=== PATIENT | male | born 1985 ===

== ENCOUNTER 2024-12-09 09:42 | Outpatient (AMB) | payer OTHER, SELFPAY ==
[2024-12-09 09:43] VITALS: PULSE 79; TEMP 37; O2SAT 98; BMI 37.5
--- NOTE | 2024-12-09 09:43 | AM.OFFWIN_ITS ---
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 - He consumed an extra filling of hot sa uce last night and is unsure if it contained shrimp, although he has no known allergy to shrimp. - The patient experienced multiple episo shena of soft stools today, which is not typical for him. - He reports mild nausea but denies any fever, bloody stools, or black stools. - The symptoms began this morning and payne ve persisted for one day. Physical Exam General: Cooperative, healthy appearing, comfortable, no acute distress and well developed Orientation: Patient oriented x3 Limitations: No limitations Head: Normal to inspection Ears: Hearing grossly normal bilaterally Nose: Normal External nose present Face and sinus: Normal facial exam Eyes: Appearance normal, both eyes and all related structures Neck: Normal visual inspection and Yes full ROM Respiratory: Normal respiratory effort and able to speak in complete sentences. Skin: No rashes or lesions noted Neuro: Patient oriented x3 Extremities: Normal to inspection Review of Systems Const All systems reviewed & are unremarkable except as noted in HPI and below Physical Exam Vital Signs: Last Vital Signs Temp 98.6 F 12/09/24 09:43 Pulse 79 12/09/24 09:43 Pulse Ox 98 12/09/24 09:43 Oxygen Delivery Method Room Air 12/09/24 09:43 BMI result Body Mass Index 37.5 Assessment & Plan Assessment & Plan (1) Diarrhea: Code(s): R19.7 - Diarrhea, unspecified Qualifiers: Diarrhea type: unspecified type Qualified Code(s): R19.7 - Diarrhea, unspecified Plan: Patient was informed and verbally consented to the use of an ambient scribe for clinic note documentation during this visit. Gastroenteritis - The patient is advised to monitor symptoms for 24 to 48 hours as they may resolve spontaneously. - If symptoms persist beyond four days or worsen, a gastrointestinal panel will be ordered to rule out infectious causes. - The patient is advised to seek emergency care if high fever, bloody stools, or black stools develop. - Imodium can be taken to manage symptoms, provided there is no fever. Orders: Orders GI Panel Today R19.7 - Diarrhea, unspecified Coding Level of Care Code New Pt Level 3 (00128) Diagnoses Diarrhea, unspecified type R19.7 Diarrhea type: unspecified type
--- OUTSIDE RECORDS SUMMARY | 2024-12-09 10:49 | XMS_ITS | Encounter Summary ---
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 Name Role Phone Unavailable Primary Care Provider Unavailabl e Prior Encounters Date Type Department Care Team Description 10/03/2023 Travel 10/03/2023 4:30 PM PDT Office Visit [facility] [address] [place] [phone] Claritza Bahena, [facility] 09/13/2023 Travel 09/13/2023 4:00 PM PDT Office Visit [facility] [address] [place] [address] Susanne Saucedo, MAMTA Attrition, teeth excessive (Primary Dx); Encounter for dental examination and cleaning without abnormal findings 10/17/2022 8:00 AM PDT Office Visit [facility] [address] [place] [address] Quincy Ng, TERRA Last Filed Vital Signs Vital Sign Reading Time Taken Comments Blood Pressure 156/109 09/13/2023 4:16 PM PDT Pulse 81 10/17/2022 8:36 AM PDT Temperature - - Respiratory Rate - - Oxygen Saturation - - Inhaled Oxygen Concentration - - Weight - - Height - - Body Mass Index - - Plan of Treatment Not on file Procedures Procedure Name Priority Date/Time Associated Diagnosis Comments ORAL HYGIENE INSTRUCTIONS Routine 2023 4:30 PM PDT TOPICAL APPLICATION OF FLUORIDE VARNISH Routine 10/03/2023 4:30 PM PDT PERIO MAINTENANCE Routine 10/03/2023 4:3 0 PM PDT LR ANTIBACT IRR/QUAD Routine 10/03/2023 4:30 PM PDT LL ANTIBACT IRR/QUAD Routine 10/03/2023 4:30 PM PDT UR ANTIBACT IRR/QUAD Routine 10/03/2023 4:30 PM PDT UL ANTIBACT IRR/QUAD Routine 10/03/2023 4:30 PM PDT INTRAORAL PHOTO Routine 09/13/2023 4:00 PM PDT INTRAORAL PHOTO Routine 09/13/2023 4:00 PM PDT INTRAORAL PHOTO Routine 09/13/2023 4:00 PM PDT INTRAORAL PHOTO Routine 09/13/2023 4:00 PM PDT INTRAORAL - COMPREHENSIVE SERIES OF RADIOGRAPHIC IMAGES Routine 09/13/2023 4:00 PM PDT COMPREHENSIVE ORAL EVALUATION - NEW OR ESTABLISHED PATIENT Routine 09/13/2023 4:00 PM PDT Encounter for dental examination and cleaning without abnormal findings PANORAMIC RADIOGRAPHIC IMAGE Routine 09/13/2023 4:00 PM PDT 12 DO COMPOSITE FILLING Routine 09/13/19 12:00 AM PDT BITEWING - SINGLE RADIOGRAPHIC IMAGE Routine 10/17/2022 8:00 AM PDT PANORAMIC RADIOGRAPHIC IMAGE Routine 10/17/2022 8:00 AM PDT SINGLE X-RAY Routine 10/17/2022 8:00 AM PDT LIMITED ORAL EVALUATION - PROBLEM FOCUSED Routine 10/17/2022 8:00 AM PDT 13 PFM CROWN Routine 10/17/2022 12:00 AM PDT 13 ROOT CANAL Routine 10/17/2022 12:00 AM PDT 31 ROOT CANAL Routine 10/17/2022 12:00 AM PDT 30 MOD COMPOSITE FILLING Routine 023 12:00 AM PDT Visit Diagnoses Diagnosis Start Date Attrition, teeth excessive Excessive attrition of teeth, unspecified 09/13/2023 Encounter for dental examination and cleaning without abnormal findings 09/13/2023 Insurance [facility] [place] [id number] [facility]
--- OUTSIDE RECORDS SUMMARY | 2024-12-09 10:50 | XMS_ITS | Clinical Summary ---
Author Organization [employer] Address [address] [place] [address] [address] [place] [address] Care Team Providers Care Police Detective Name Role Phone Jai Burger NP Primary Care Provider [phone] Allergies No known active allergies Medications loratadine (Claritin) 10 MG tablet Take 10 mg by mouth if needed for allergies. 4 Active fluocinonide (Lidex) 0.05 % ointment Apply topically if needed for irritation or rash. 4 Active Active Problems Problem Noted Date Diagnosed Date Pain of left hand 07/24/2024 Cyst of joint of left hand 07/24/2024 Encounters Date Type Department Care Team Description 10/29/2024 Telephone Jung [facility] [address] [place] [address] Jai Burger, SIMEON Abnl hand imaging from Last 3 Months Immunizations Immunization Administration Dates Next Due Influenza, Injectable, MDCK, w/preservative 09/2023 Social History Tobacco Use Types Packs/Day Years Used Date Smoking Tobacco: Never Passive Smoke Exposure: Never Smokeless Tobacco: Never Tobacco Cessation:Counseling Given: Not Answered Alcohol Use Standard Drinks/Week Comments Yes 0 (1 standard drink = 0.6 oz pur e alcohol) Once a year Alcohol Answer Date Recorded How often do you have a drink containing alcohol ? 0 07/24/2024 How many drinks containing a lcohol do you have on a typical day when you are drinking? 0 07/24/2024 How often do you have six or more drinks on one occasion? 0 07/24/2024 Housing Stability Answer Date Recorded What is your housing situation today? I have sharon bolivar 07/24/[address] you li ve. Do you have problems with any of the following? None of the above 07/24/2024 Food Insecurity Answer Date Recorded Within the past 12 months, y ou worried that your food would run out before you got money to buy more: Never True 07/24/2024 Within the past 12 months,th e food you bought just didn't last and you didn't have enough money to get more: Never True Transportation Answer Date Recorded In the past 12 months, has l ack of transportation kept you from medical appts, meetings, work or from getting things needed for daily living? No 07/24/2024 Intimate Partner Violence Answer Date R ecorded Within the last year, have y ou been afraid of your partner or ex-partner? 2 07/24/2024 Within the last year, have y ou been humiliated or emotionally abused in other ways by your partner or ex-partner? 2 Within the last year, have y ou been kicked, hit, slapped, or otherwise physically hurt by your partner or ex-partner? 2 07/24/2024 Within the last year, have y ou been raped or forced to have any kind of sexual activity by your partner or ex-partner? 2 07/24/2024 Utilities Answer Date Recorded In the past 12 months, has t he electric, gas, oil or water company threatened to shut off services in your home? No 07/24/2024 Depression Answer Date Recorded Patient Health Questionnaire-2 Score 0 07/24/2024 Internet Access Answer Date Recorded Internet Access Q1 Yes 07/24/2024 Internet Access Q2 Not on file 07/24/2024 Sex and Gender Information Value Date Recorded Sex Assigned at Male 02/06/2024 9:12 AM EDT Legal Sex Male 4:21 PM EDT Gender Identity Male 02/06/2024 9:12 AM EDT Sexual Orientation Choose not to disclose 2023 9:12 AM EDT Occupation Industry Job Start Date Job End Date Not on file Not on file Not on file Not on file Last Filed Vital Signs Vital Sign Reading Time Taken Comments Blood Pressure 120/78 07/24/2024 3:35 PM EDT Pulse 69 07/24/2024 3:35 PM EDT Temperature - - Respiratory Rate - - Oxygen Saturation 98% 07/24/2024 3:35 PM EDT Inhaled Oxygen Concentration - - Weight 130 kg (286 lb) 07/24/2024 3:35 PM EDT Height 185.4 cm (6' 1 ) 07/24/2024 3:35 PM EDT Body Mass Index 37.73 07/24/2024 3:35 PM EDT Plan of Treatment Health Maintenance Due Date Last Done Comments Lipid Panel 1986 Disability Screening 1986 HPV Vaccines (1 - Male 3-dos e series) 2001 DTaP/Tdap/Td Vaccines (1 - Tdap) 2005 Hepatitis A Vaccines (1 of 2 - Risk 2-dose series) 2005 Hepatitis B Vaccines (1 of 3 - 19+ 3-dose series) 2005 COVID-19 Vaccine (1 - 2023-2 5 season) 2024 Influenza Vaccine (#1) 2024 02/13/2024 Dental Prophylaxis 01/08/2025 07/08/2024 Dental Oral Exam 01/22/2025 07/22/2024 Dental X-Ray: Bitewings 07/09/2025 07/08/2024 Alcohol/Substance Use Screening 07/24/2025 07/24/2024 Depression Screening 07/24/2025 07/24/2024, 07/24/2024 Family Planning (PISQ) 07/24/2025 07/24/2024 SDOH Screening 07/24/2025 07/24/2024 Tobacco Screening 07/24/2025 07/24/2024 Dental X-Ray: Full Mouth 07/10/2027 07/08/2024 Zoster Vaccines (1 of 2) 2036 RSV Patients and Patients Aged 60 years or older (1 - 1-dose 75+ series) 2061 HIV Screening Completed 07/02/2024 Hepatitis C Screening Completed 07/02/2024 HIB Vaccines Aged Out No longer eligi ble based on patient's age to complete this topic IPV Vaccines Aged Out No longer eligi ble based on patient's age to complete this topic Meningococcal B Vaccine Aged Out No l onger eligible based on patient's age to complete this topic Meningococcal Vaccine Aged Out No homa german eligible based on patient's age to complete this topic Pneumococcal Vaccine: Pediatrics (0 to 5 Years) and At-Risk Patients (6 to 49) Years Aged Out No longer eligible b ased on patient's age to complete this topic RSV under 20 months Aged Out No longe r eligible based on patient's age to complete this topic Rotavirus Vaccines Aged Out No longer eligible based on patient's age to complete this topic Procedures Procedure Name Priority Date/Time Associated Diagnosis Comments US HAND LEFT Routine 10/24/2024 Pain of left hand Cyst of joint of left hand PERIODIC ORAL EVALUATION - ESTABLISHED PATIENT Routine 07/22/2024 10:30 AM EDT PROPHYLAXIS - ADULT Routine 07/08/2024 1 1:00 AM EDT INTRAORAL - COMPLETE SERIES OF RADIOGRAPHIC IMAGES Routine 07/08/2024 11:00 AM EDT HEPATITIS C AB W/REFLEX TO HCV QUANT NAAT IF POSITIVE Routine 07/02/2024 3:52 PM EDT Accident caused by hypodermic needle, sequela HIV P24 ANTIGEN/ANTIBODY WITH REFLEX TO CONFIRMATION Routine 07/02/2024 3:52 PM EDT Accident caused by hypodermic needle, sequela from Last 3 Months or Most Recently Relevant to Health Maintenance Results * US Hand Left (10/24/2024) Anatomical Region Laterality Modality Abdomen Ultrasound us Una Massey NP IMG US PROCEDURES Fin al Result * Hepatitis C Virus (HCV) Antibody With Reflex to Quantitative Real-time PCR [[id number]] (07/02/2024 3:52 PM EDT) HCV Ab Non Reactive Non Reactive [facility] 1 Blood Venous blood specimen / Unknown 07/02/2024 3:52 PM EDT 07/02/2024 Narrative [facility] 1 - 07/03/2024 12:05 PM EDT Performed at: [facility] [address], [address], [place], [place] [id number] Sanforizing Machine Operator: Cristian Guerra MD, Phone: [phone] [facility] [employer] LAB BLOOD ORDERABLES Donna l Result [facility] 1 * HIV p24 Antigen/Antibody With Reflex to Confirmation (07/02/2024 3:52 PM EDT) [facility] HIV Ab/p24 Ag Screen Non Reactive Non Reactive [facility] 1 Comment: HIV-1/HIV-2 antibodies and HIV-1 p24 antigen were NOT detected. There is no laboratory evidence of HIV infection. HIV Negative Blood Venous blood specimen / Unknown 07/02/2024 3:52 PM EDT 07/02/2024 Narrative [facility] 1 - 07/03/2024 10:05 AM EDT Performed at: 01 - [address], [address], [place], [place] [id number] Sanforizing Machine Operator: Cristian Guerra MD, Phone: [phone] [facility] LAB BLOOD ORDERABLES Donna l Result [facility] 1 from Last 3 Months or Most Recently Relevant to Health Maintenance Insurance [facility] [address] [place] [address] DENTAL - [facility] Care Teams Police Detective Relationship Specialty Start Date End Date Jai Burger NP [address] [facility] [place] [address] PCP - General Internal Medicine 02/13/24
--- OUTSIDE RECORDS SUMMARY | 2024-12-09 10:50 | XMS_ITS | Clinical Summary ---
Author Organization [facility] Address [address] [place] [address] Care Team Providers Care Instructional Design Specialist Name Role Phone Unavailable Primary Care Provider Unavailabl e Medications No known medications Active Problems Problem Noted Date Diagnosed Date Non-alcoholic fatty liver disease 09/13/2023 Social History Tobacco Use Types Packs/Day Years Used Date Smoking Tobacco: Never Smokeless Tobacco: Never Tobacco Cessation:Counseling Given: Not Answered Alcohol Use Standard Drinks/Week Comments Not Currently 0 (1 standard drink = 0.6 oz pur e alcohol) On ocassion Sex and Gender Information Value Date Recorded Sex Assigned at Not on file Legal Sex Male 10:58 AM PDT Gender Identity Not on file Sexual Orientation Not on file Last Filed Vital Signs Vital Sign Reading Time Taken Comments Blood Pressure 156/109 09/13/2023 4:16 PM PDT Pulse 81 10/17/2022 8:36 AM PDT Temperature - - Respiratory Rate - - Oxygen Saturation - - Inhaled Oxygen Concentration - - Weight - - Height - - Body Mass Index - - Plan of Treatment Health Maintenance Due Date Last Done Comments Scaling and Root Planing 1986 Periodontal Maintenance 01/04/2024 10/03/2023 Dental Oral Exam 03/15/2024 09/13/2023 Dental X-Ray: Bitewings 03/15/2024 09/13/2023 Dental X-Ray: Panoramic 09/13/2026 09/13/2023, 10/18, 10/17/2022 Dental X-Ray: Full Mouth 09/14/2026 09/14/2023, 09/2023 Procedures Procedure Name Priority Date/Time Associated Diagnosis Comments PERIO MAINTENANCE Routine 10/03/2023 4:3 0 PM PDT PANORAMIC RADIOGRAPHIC IMAGE Routine 09/13/2023 4:00 PM PDT INTRAORAL - COMPREHENSIVE SERIES OF RADIOGRAPHIC IMAGES Routine 09/13/2023 4:00 PM PDT COMPREHENSIVE ORAL EVALUATION - NEW OR ESTABLISHED PATIENT Routine 09/13/2023 4:00 PM PDT Encounter for dental examination and cleaning without abnormal findings from Last 3 Months or Most Recently Relevant to Health Maintenance [facility] [place] [id number]
--- OUTSIDE RECORDS SUMMARY | 2024-12-09 10:50 | XMS_ITS | Clinical Summary ---
Author Organization [address] [facility] Address [address] [place] [address] Phone Care Team Providers Care Machine Welder Name Role Phone Jason Burger NP Primary Care Provider [phone] Social History Tobacco Use Types Packs/Day Years Used Date Smoking Tobacco: Never Assessed Sex and Gender Information Value Date Recorded Sex Assigned at Not on file Legal Sex Male 8:05 AM EDT Gender Identity Not on file Sexual Orientation Not on file Plan of Treatment Upcoming Encounters Date Type Department Care Team ([facility] st Contact Info) Description 01/02/2025 8:00 AM EDT Consult Orthopedic Surgery - [place] [address] [facility] [address] [place] [phone] Francy Jiang, AURA [address] [place] [phone] Health Maintenance Due Date Last Done Comments DTaP,Tdap,and Td Vaccines (1 - Tdap) 2005 Hepatitis B Vaccines (1 of 3 - 19+ 3-dose series) 2005 COVID-19 Vaccine ( - 2023-2 5 season) 2023 Depression Screening 04/09/2024 Cholesterol Screening (Lipid Panel) 11/03/2024 HIV Screening 11/03/2024 Hepatitis C Screening 11/03/2024 Social Influencers of Health Screening 11/03/2024 Influenza Vaccine (#1) 2024 HIB Vaccines Aged Out No longer eligi ble based on patient's age to complete this topic HPV Vaccines Aged Out No longer eligi ble based on patient's age to complete this topic Hepatitis A Vaccines Aged Out No long er eligible based on patient's age to complete this topic IPV Vaccines Aged Out No longer eligi ble based on patient's age to complete this topic MMR Vaccines Aged Out No longer eligi ble based on patient's age to complete this topic Meningococcal ACWY Vaccine Aged Out N o longer eligible based on patient's age to complete this topic Meningococcal B Vaccine Aged Out No l onger eligible based on patient's age to complete this topic Pneumococcal Vaccine: Pediat rics (0 to 5 Years) and At-Risk Patients (6 to 49 Years) Aged Out No longer eligible b ased on patient's age to complete this topic RSV Immunization Patients Un shari 20 months Aged Out No longer eligible b ased on patient's age to complete this topic Varicella Vaccines Aged Out No longer eligible based on patient's age to complete this topic Insurance Care Teams Machine Welder Relationship Specialty Start Date End Date Jason Burger NP [address] [place] [address] PCP - General Nurse Practitioner 11/03/24
--- OUTSIDE RECORDS SUMMARY | 2024-12-09 10:50 | XMS_ITS | Encounter Summary ---
Author Organization [employer] Address [address] [place] [address] [address] [address] Care Team Providers Care Facility Examiner Name Role Phone Jai Burger NP Primary Care Provider [phone] Encounter Details Date Type Department Care Team (Late st Contact Info) Description 07/02/2024 Orders Only [facility] [address] [place] [address] Jai Burger NP [address] [place] [address] Social History Tobacco Use Types Packs/Day Years Used Date Smoking Tobacco: Never Assessed Sex and Gender Information Value Date Recorded Sex Assigned at Male 02/06/2024 9:12 AM EDT Legal Sex Male 4:21 PM EDT Gender Identity Male 02/06/2024 9:12 AM EDT Sexual Orientation Choose not to disclose 2023 9:12 AM EDT documented as of this encounter Plan of Treatment Not on file documented as of this encounter Visit Diagnoses Not on filedocumented in this encounter Care Teams Facility Examiner Relationship Specialty Start Date End Date Jai Burger NP [address] [place] [address] PCP - General Internal Medicine 02/13/24 documented as of this encounter
== END 2024-12-09 10:17 | disposition home or self-care (01) ==
PROVIDERS: Visit Provider Physician Assistant
DX: R19.7 Diarrhea, unspecified (principal)

== ENCOUNTER 2024-12-09 09:42 | Outpatient (REF) | payer OTHER, SELFPAY ==
--- OUTSIDE RECORDS SUMMARY | 2023-12-06 11:15 | XMS_ITS | Continuity of Care Document ---
Author Organization [facility] Address [address] [place] [address] Phone Care Team Providers Care Supervisor Liquefaction Name Role Phone Daria Jasso Unavailable Unavailable Allergies, Adverse Reactions, Alerts Substance Reaction Status Criticality No Known Allergies Active No Inform ation Medications Medication Instructions Dosage Effective Dates (start - stop) Status Comments fluocinonide 0.05 % topical ointment apply by topical route 2 times every day to the affected area(s) 0.00 - Active loratadine 10 mg tablet take 1 tablet by oral route every day as needed for allergies. - Active Procedures Procedure Date OFFICE/OUTPATIENT VISIT EST OFFICE/OUTPATIENT VISIT EST TB INTRADERMAL TEST Handling and/or conveyance of specimen J OFFICE/OUTPATIENT VISIT EST OFFICE/OUTPATIENT VISIT EST PREV VISIT, NEW, AGE 18-39 OFFICE/OUTPATIENT VISIT, EST Advance Directives Directive Yes / No Effective Date File Name No Information Encounters Encounter Description Practice Location Reason(s) For Visit Diagnoses Date Provider Providers Copied on Encounter [facility], [address], [place], [place], [id number], [place] tel:[phone] [facility] No Information Yeison Huff. [address], [place], [id number] , [place]. tel:[phone] [facility], [address], [place], [place], [id number], [place] tel:[phone] [facility] 2 TeleHealth (chief complaint) Chronic eczemaVaricella vaccination status unknown 4 Jaden Miller. [address], [place], [id number] , [place]. tel: [phone] [facility], [address], [place], [place], [id number], [place] tel:[phone] [facility] referral (chief complaint) Body mass index (BMI) 39.0-39.9, adultHistory of kidney stonesImmunization due 4 Venus Tobar. [address] [place], [address], [place]. tel: [phone] [facility], [address], [place], [place], [id number], [place] tel:[phone] [facility] 2 tb test (chief complaint) Encounter for screening for respiratory tuberculosis 4 Health Educator Nurse Visit. [address], [place], [id number] . tel: [phone] [facility], [address], [place], [place], [id number], [place] tel:[phone] [facility] 2 TeleHealth (chief complaint) Cervical lymphadenitisMulti ple thyroid nodulesTuberculosi s screening 4 Jaden Miller. [address], [place], [id number] , [place]. tel: [phone] [facility], [address], [place], [place], [id number], [place] tel:[phone] [facility] 2 TeleHealth (chief complaint) Other abnormal glucoseHyperlipide kaylene, unspecifiedVitamin D deficiency, unspecifiedSnoring Chronic fatigueCalf cramp 4 Jaden Miller. [address], [place], [id number] , [place]. tel: [phone] PREV VISIT, NEW, AGE 18-39 [facility], [address], [place], [place], [id number], [place] tel:[phone] [facility] 2 Physical (chief complaint) Encntr for general adult medical exam w/o abnormal findingsOverweight Other abnormal glucoseFatty liverVitamin D deficiencyThyroid noduleHead and neck lymphadenopathy 4 Jaden Miller. [address], [place], [id number] , [place]. tel: [phone] Family History Family Member Type Diagnosis Age At Onset Problem Family history of Diabetes m ellitus Problem Family history of Hypertensi on Payers Payer name Insurance type Covered libertarian ID Pedro elias(kiki) Health [facility] [id number] Social History Type Description Quantity Date Captured Comments Alcohol Use Details Unknown Caffeine Use Details Unknown Tobacco Use Status No Information Smoking Status No Information Sex Male Sexual Orientation Straight or heterosexual Gender Identity Male Vital Signs Date / Time: Height Weight BMI Pulse Rate Blood Pressure Temperature Respiratory Rate Body Surface Area Head Circumference Head Circ. Percentile Wt./George. Percentile BMI percentile Pulse Ox Inhaled Ox 1:42 PM 138.799 kg (306.00 lbs) Chief Complaint And Reason For Visit No Information Reason For Referral Reason For Referral No Information Plan Of Treatment Date Type Action Status Goal Hep C Ab. Due on due Goal Depression scree nabeel. Due on due Goal HIV screen. Due on due Goal Diabetes screeni ng. Due on due Goal Alcohol/chemical dependency screeing. Due on due Goal Dental exam. Due on 024 due Goal Alcohol/chemical dependency screeing. Due on due Goal Hep C Ab. Due on due Goal Dental exam. Due on due Goal HIV screen. Due on due Goal Depression scree nabeel. Due on due Goal Diabetes screeni ng. Due on due Goal Dental exam. Due on due Goal Depression scree nabeel. Due on due Goal Diabetes screeni ng. Due on due Goal Hep C Ab. Due on due Goal HIV screen. Due on due Goal Alcohol/chemical dependency screeing. Due on due Goal Dietary manageme nt education, guidance, and counseling completed Goal HIV screen. Due on due Goal Diabetes screeni ng. Due on due Goal Depression scree nabeel. Due on due Goal Hep C Ab. Due on due Goal Dental exam. Due on due Goal Alcohol/chemical dependency screeing. Due on due Goal Diabetes screeni ng. Due on due Goal Alcohol/chemical dependency screeing. Due on due Goal Hep C Ab. Due on due Goal Dental exam. Due on due Goal Depression scree nabeel. Due on due Goal HIV screen. Due on due Goal Depression scree nabeel. Due on due Goal Alcohol/chemical dependency screeing. Due on due Goal Dental exam. Due on due Goal HIV screen. Due on due Goal Hep C Ab. Due on due Goal Diabetes screeni ng. Due on due Goal Depression scree nabeel. Due on due Goal Alcohol/chemical dependency screeing. Due on due Goal Dental exam. Due on due Goal HIV screen. Due on due Goal Hep C Ab. Due on due Referral Ordered: Pulmonology (related to Snoring) ordered Referral Ordered: Referrals: Pulmonology ordered Referral Ordered: US Soft Tissue Neck ordered Referral Ordered: US Thyroid ordered Patient Education A Healthy Hear t: Care Instructions completed Patient Education A Healthy Life style: Care Instructions completed Patient Education A Healthy Life style: Care Instructions completed Patient Education Well Visit, Ag es 18 to 50: Care Instructions completed Future Order: Lab Order Varicell a-Zoster Virus Antibody (Immunity Screen), ACIF ([id number]), Ordered on: Ordered Future Order: Radiology Order XR KUB 1 View ([id number]), Ordered on: Ordered History Of Present Illness Encounter Date Complaint History Of Prese nt Illness TeleHealth The patient vero andres consented to have their visit with [facility] via Telehealth for their concern.Telehealth Platform used: Candelario this visit type clinically appropriate for this patient? YesIs this encounter in place of a acun-si-jewe encounter? YesPatient requests review of varicella lab report for employment.Seeks fluocinonide refill for chronic hand eczema. No other concerns.A&P:Chronic hand eczema:- Provided fluocinonide refill.Lab report:- Not ready- Advised to return next week for results. referral Patient calling via telehealth today stating he continue to have off and on radiating pain towards the groin area Patient has h/o kidneysAlso need lab order for varicella immunization status Denies any other problems today. The patient verbally consented to have their visit with [facility] via Telehealth for their concern.Telehealth Platform used: video Venancio this visit type clinically appropriate for this patient? YesIs this encounter in place of a myic-zz-lvdn encounter? Yes tb test TeleHealth The patient vero andres consented to have their visit with [facility] via Telehealth for their concern.Telehealth Platform used: Candelario this visit type clinically appropriate for this patient? YesIs this encounter in place of a mhox-uq-hqbu encounter? YesThe patient is a 38-year-old male requesting a TB test for employment.The patient has not previously received the BCG vaccination and has no history of positive skin test results. He expresses interest in receiving the vaccine. He reports no active tuberculosis symptoms such as cough, fever, or weight loss.Laboratory StudiesTSH was within normal limits.ImagingUltrasound of soft tissue of neck and thyroid shows reactive lymph nodes on the right side 1.1 cm, one on the left side 1.3 cm. Thyroid has multiple nodules and they do not meet the criteria for biopsy at this time. TeleHealth The patient vero andres consented to have their visit with [facility] via Telehealth for their concern.Telehealth Platform used: Telephone or Audio CommunicationIs this visit type clinically appropriate for this patient? YesIs this encounter in place of a bvcs-ps-joov encounter? YesThe patient presents for lab results.The patient reports experiencing nocturnal snoring, morning fatigue, and a general feeling of unrefreshingness upon awakening.Laboratory LpbifmyI0q is elevated at 5.9. LDL is slightly abnormal. Vitamin D is deficient. Carmelo Moore is a 38-year-old male who presents to [facility]. The patient has a history of prediabetes, a thyroid nodule with his last thyroid ultrasound showing a 1 mm nodule, and submandibular lymphadenopathy. He has been trying to lose weight. The patient is not taking any medications currently. Reportedly, the patient has a wart-like skin grown on his scrotum. It is not bothersome at this time and does not want to see a asbestos worker helper for removal, but would like to observe it for now. Per the patient, he is up to date on his Tdap vaccine, but does not remember the exact date when he received it. Functional Status Date Functional Assessmen t No Information Instructions Date Instruction Additional Infor mation X-ray as ordered. F/ u in 1 week May use OTC ibuprofen or Tylenol for pain as ordered/directed. Educated about the ER precautions. Verbalized understanding. The risks, benefits and side effects of treatment were discussed with the patient. Patient verbalized understanding. The patient was advised to call the office or go to the ER if symptoms worsen or do not improve. The patient verbalized an understanding of the plan. Related to History of kidney stones Labs as ordered. F/u in 1 week R elated to Immunization due Giving encouragement to exercise Related to Body mass index (BMI) 39.0-39.9, adult Dietary management e ducation, guidance, and counseling Related to Body mass index (BMI) 39.0-39.9, adult The TB screening yuniel l be provided, and the patient was advised to return to the clinic in 48 to 72 hours for the reading. Related to Tuberculosis screening A follow-up ultrasou nd of the thyroid was recommended after 1 year, and cervical lymphadenitis was also recommended. Related to Multiple thyroid nodules No follow-up is nece ssary unless the lymph nodes are enlarging or causing additional problems. Related to Cervical lymphadenitis 1. Potential sleep a pnea.The patient's sleep quality is characterized by disturbed sleep. A referral to pulmonology for a sleep study has been initiated. Related to Snoring 2. Calf cramps.The p atient has been advised to increase his water intake and engage in stretching exercises as part of his treatment regimen.MDM: Moderate complexity Related to Calf cramp Counseled about Diet with low cholesterolExercise regularlyCheck Cholesterol level in 3 to 6 months Related to Hyperlipidemia, unspecified Medication prescribe d. Follow up in 3-6 months. Related to Vitamin D deficiency, unspecified Decrease carbohydrat e, starch and sugar intakeExercise daily for a minimum of 30 minutes.Repeat labs after 3 to 6 months Related to Other abnormal glucose Counseled about heal thy, low calorie diet and regular exercise for minimum of 30 minutes daily.Follow up in 2 weeks for results. Related to Overweight Assessments Type Assessment Date No Information Patient Care Teams Name Effective Dates (start - stop) Status Members No Information
== END 2024-12-09 09:43 | disposition home or self-care (01) ==
LOC: HO.LAB 09:42
DX: Z13.89 Encounter for screening for other disorder (principal)